=== PATIENT | female | born 1955 | race Caucasian/White ===

== ENCOUNTER 2017-02-01 10:39 | Inpatient (IN) | payer OTHER ==
[~2017-02-01] VITALS: Ht 172.7 cm; Wt 110.7 kg
[2017-02-01] MEDS ORDERED: LEVO125T4 PO (14:05)
[2017-02-01] MEDS ORDERED: CETI10 PO (14:05)
[2017-02-01] MEDS ORDERED: MULTTAB67 PO (14:09)
[2017-02-01] MEDS ORDERED: OMEGCAP PO (14:10)
[2017-02-01] MEDS ORDERED: ZOLO25TA PO (14:11)
[2017-02-01] MEDS ORDERED: ZOLO50TA PO (14:11)
[2017-02-02] VITALS (7 sets, daily range): BP systolic 91–123; BP diastolic 54–84; PULSE 70–74; RESP 14–20; TEMP 96.2–98.3; O2SAT 94–97
[2017-02-02] MEDS ORDERED: POVIDONE IODINE 7.5% SCRUB 118 ML BOTTLE TOPICAL SCH (06:15)
[2017-02-02] MEDS ORDERED: POVIDONE IODINE 5% (ANTISEPSIS KIT) 4 APPLICATIONS EACH NARE PRN (06:15)
[2017-02-02] MEDS ORDERED: VANCOMYCIN 1000 MG/NS 250 ML (for <70 kg) IV SCH ×2 (06:15)
[2017-02-02] MEDS ORDERED: SODIUM CHLORID 0.9% 500 ML IV PRN (06:15)
[2017-02-02] MEDS ORDERED: ceFAZolin 2 GM PREMIX 50 ML IV SCH (06:15)
[2017-02-02] MEDS ORDERED: METOPROLOL TARTRATE 25 MG TAB PO PRN (06:15)
[2017-02-02] MEDS ORDERED: LACTATED RINGER'S 1000 ML IV PRN (06:15)
[2017-02-02] MEDS ORDERED: INSULIN HUMAN REGULAR 1,000 UNITS/10 ML VIAL SQ PRN (06:15)
[2017-02-02] MEDS ORDERED: CHLORHEXIDINE GLUCONATE 2 % 1 PACK (2 CLOTHS) TOPICAL PRN (06:15)
[2017-02-02] MEDS ORDERED: DEXAMETHASONE SOD PHOS 20 MG/5 ML VIAL IV SCH (06:15)
[2017-02-02] MEDS ORDERED: GENTAMICIN SULFATE 80 MG/2 ML VIAL ONE (06:56)
--- NOTE | 2017-02-02 07:00 | HHI.DCPOC ---
Discharge Care Plan Diagnosis: (1) Status post total knee replacement, right (2) Primary localized osteoarthrosis, lower leg Your Health Problems Are: Difficulty with ADL Goals to Promote Your Health * To prevent worsening of your condition and complications * To maintain your health at the optimal level Directions to Meet Your Goals Take your medications as prescribed Follow your dietary instruction Follow activity as directed Keep your appointments as scheduled Take your immunizations and boosters as scheduled If your symptoms worsen call your PCP, if no PCP go to Urgent Care Center or Emergency Room Smoking is Dangerous to Your Health. Avoid second hand smoke Call the 24-hour hour crisis hotline for domestic abuse at Je Becker Feb 02, 2017 07:00
--- NOTE | 2017-02-02 07:01 | HHI.FF ---
Face to Face Verification Diagnosis: (1) Status post total knee replacement, right (2) Primary localized osteoarthrosis, lower leg Physical Therapy Gait training, Transfer training, bed to chair Knee: Total knee Right LE Weight Bearing: WB as tolerated Right LE Range of Motion: Active ROM Nursing Nursing: Katharine teaching, Dressing changes Dressing Changes: Daily dressing change I have seen patient Deepthi Lockhart on 02/02/17. My clinical findings support the need for the requested home health care services because: Limited ability to care for self High risk of falls I certify that my clinical findings support that this patient is homebound because: Post-op weakness Unsteady gait/balance Je Becker Feb 02, 2017 07:01
[2017-02-02] MEDS ORDERED: CPMMACHINE (07:03)
[2017-02-02] MEDS ORDERED: WALKER WHEELS/F1 MIS (07:03)
[2017-02-02] MEDS ORDERED: COMMODE 3-IN-11 MIS (07:03)
[2017-02-02] MEDS ORDERED: APREPITANT 40 MG CAP ONE (08:04)
[2017-02-02] MEDS ORDERED: ACETAMINOPHEN 1000 MG/100 ML VIAL IV ONE (08:08)
[2017-02-02] MEDS ORDERED: FAMOTIDINE 20 MG/2 ML VIAL ONE (08:09)
[2017-02-02] MEDS ORDERED: ROPIVACAINE PERI-ARTICULAR INJECTION. P-ARTICULR SCH ×5 (08:30)
[2017-02-02] MEDS ORDERED: TRANEXAMIC ACID INJ 1,107 MG in SODIUM CHLORIDE 0.9% INJ 100 ML IV SCH ×2 (08:30→12:00)
--- NOTE | 2017-02-02 10:22 | PD.OP ---
cc: Jean-Claude Manning MD Operative Report Date of Surgery: Feb 02, 2017 Preoperative Diagnosis: Right knee severe osteoarthritis Postoperative Diagnosis: Same Procedure: Right total knee arthroplasty Anesthesia: Adductor canal block and general Surgeon: Jean-Claude Manning Crystal Slicer(s): KVNG Tamayo The surgical procedure was assisted by my Advanced Registered Nurse Practitioner. My NURSING HOME PHYSICIAN presence was necessary throughout this case for the manipulation and positioning of the surgical extremity. My NURSING HOME PHYSICIAN was assisting me throughout the duration of this procedure. The skill set of an Advance Registered Nurse Practitioner was medically necessary to complete this procedure. During the surgical case, the surface lay out technician was working at the back table and the Advance Registered Nurse Practitioner was directly assisting me. Operation and Findings: IMPLANTS: DePuy Attune: Patella: size 38. Femur, posterior stabilized size 8. Tibia, rotating platform size 6. Tibial insert, rotating platform, posterior stabilized size 5 mm thickness. ESTIMATED BLOOD LOSS: 150 cc TOURNIQUET TIME: 43 minutes at 250 mmHg pressure. JUSTIFICATION FOR PROCEDURE: The patient has end-stage osteoarthritis to the knee. There is an attached conservative measures pathway form in the chart that describes the nonoperative measures that were undertaken prior to consideration of surgical management. The patient understood the risks and benefits of surgical management. See my office notes for further details PROCEDURE: The patient was brought back to the operative theatre. Adequate anesthesia was obtained. The patient received intravenous vancomycin and Ancef. The lower extremity was prepped and draped in the usual sterile fashion.The leg was exsanguinated, the tourniquet was raised. A standard anterior incision was performed followed by medial parapatellar arthrotomy was performed. End-stage arthritis was identified. Osteotomy of the patella was performed. We drilled holes for the patella. We trialed the patella component. We placed an intramedullary guide into the distal femur. We ultimately resected 13 mm off of the distal femur in 5 degrees of valgus. The remnants of the ACL and PCL were resected. Osteotomy of the proximal tibia was performed, resecting 6 mm off of the medial side. This was done with 3 degrees of posterior slope using an extramedullary guide. The distal end of the guide was placed in the mid aspect of the ankle. The femur was sized, and four chamfer cuts were completed in 3 of external rotation. We then cut the central box in the distal femur to replace the PCL. We resected the remnants of the menisci and removed osteophytes off of the femur and tibia. We then trialed the knee. We punched the tibia for the keel, and then used standard technique to cement in components. Excess cement was removed. We trialed the knee again and the final polyethylene thickness was chosen to provide extension to 0 degrees, and flexion of 140 degrees to gravity. The ligaments were appropriately balanced. Lateral release was necessary to obtain excellent patellofemoral tracking. The tourniquet was released and adequate hemostasis was obtained. An intra- articular injection of a ropivacaine cocktail was injected. The posterior knee was inspected for excess cement, which was removed. The final polyethylene was put into position after thorough irrigation. We then closed deep fascia with a #2 Stratafix followed by skin with 2-0 Vicryl followed by elsa. Postop plan is to weight-bear as tolerated. DVT prophylaxis will be performed with Monique, JESUS MANUEL reyes, early mobilization, and Lovenox followed by aspirin. Jean-Claude Manning MD Feb 02, 2017 10:22
[2017-02-02] MEDS ORDERED: ENOX40P SQ (10:24)
[2017-02-02] MEDS ORDERED: NORC5TAB PO (10:24)
[2017-02-02] MEDS ORDERED: ASPI325T PO (10:24)
[2017-02-02] MEDS ORDERED: SODIUM CHLORIDE 0.9% FLUSH 5 ML FLUSH IVF PRN (10:30)
[2017-02-02] MEDS ORDERED: NALOXONE HCL 0.4 MG/ML AMP IV PRN (10:30)
[2017-02-02] MEDS ORDERED: Post-op Orders (for Pharmacy) MISC XX ONE (10:30)
[2017-02-02] MEDS ORDERED: BISACODYL 10 MG SUPP RECTAL PRN (10:30)
[2017-02-02] MEDS ORDERED: ZOLPIDEM TARTRATE 5 MG TAB PO PRN (10:30)
[2017-02-02] MEDS ORDERED: ACETAMINOPHEN/HYDROcodone 325 MG/5 MG TAB PO PRN ×2 (10:30)
[2017-02-02] MEDS ORDERED: diphenhydrAMINE HCL 50 MG/ML VIAL IV PRN (10:30)
[2017-02-02] MEDS ORDERED: MORPHINE SULFATE 4 MG/ML INJ IV PUSH PRN (10:30)
[2017-02-02] MEDS ORDERED: ALUMINUM/MAGNESIUM/SIMETH 30 ML CUP PO PRN (10:30)
[2017-02-02] MEDS ORDERED: ONDANSETRON HCL 4 MG/2 ML VIAL IVP PRN (10:30)
[2017-02-02] MEDS ORDERED: MAGNESIUM HYDROXIDE SUSP 30 ML CUP PO PRN (10:30)
[2017-02-02] MEDS ORDERED: BUPIVACAINE LIPOSOME PF 1.3% 20 ML VIAL ONE (10:50)
[2017-02-02] MEDS: SODIUM CHLOR 0.9% 1000 ML INJ 1,000 ML IV SCH ×2 (11:00→20:19)
[2017-02-02] MEDS ORDERED: DO NOT ADM ANY ANTICOAGULANT DRUGS PRN (11:00)
[2017-02-02] MEDS ORDERED: MIDAZOLAM HCL 2 MG/2 ML VIAL ONE (11:07)
[2017-02-02] MEDS ORDERED: fentaNYL CITRATE 250 MCG/5 ML AMP ONE (11:07)
[2017-02-02] MEDS ORDERED: PILL SPLITTER OTHER PRN (11:15)
--- NOTE | 2017-02-02 11:55 | RADRPT ---
EXAM DATE/TIME: 02/02/2017 11:00 [place] COMPARISON: No previous studies available for comparison. INDICATIONS : Post op right knee surgery MEDICAL HISTORY : None. SURGICAL HISTORY : None. ENCOUNTER: Initial ACUITY: 1 day PAIN SCORE: 5/10 LOCATION: Right knee FINDINGS: Two view examination of the right knee was performed. Postoperative changes of knee arthroplasty with arthroplasty components in anatomic alignment. Osseous structures are intact without significant acu te bony fracture. Postsurgical soft tissue swelling and emphysema is noted. Surgical staple line ante riorly. CONCLUSION: 1. Expected postoperative changes of right knee arthroplasty with hardware in anatomic alignment with out significant acute bony fracture. Sky Oglesby MD on February 02, 2017 at 11:52 Board Certified Radiologist. This report was verified electronically.
[2017-02-02] MEDS ORDERED: NEOSTIGMINE 3 MG/3 ML SYR IV ONE (12:00)
[2017-02-02] MEDS ORDERED: LACTATED RINGER'S 1000 ML INJ 2,000 ML IV ONE (12:00)
[2017-02-02] MEDS ORDERED: ePHEDrine/NS 25 MG/5 ML SYR IV ONE (12:00)
[2017-02-02] MEDS ORDERED: ONDANSETRON HCL 4 MG/2 ML VIAL IV PUSH ONE (12:00)
[2017-02-02] MEDS ORDERED: PROPOFOL 200 MG/20 ML AMP IV ONE (12:00)
--- NOTE | 2017-02-02 15:15 | PD.CONS ---
HPI Service [facility] Hospitalists Consult Requested By Dr. Manning Reason for Consult Medical management Primary Care Physician Non-Staff Diagnoses: (1) Status post total knee replacement, right History of Present Illness Ms. Lockhart is a 61-year-old female patient with a known history of hypothyroidism, anxiety and depression, osteoarthritis of right knee who is status post total right knee arthroplasty with Dr. Manning today. Hospitalist team have been consulted for medical management. Patient seen and examined today. Patient states she failed outpatient management for right knee osteoarthritis and elected for total right knee arthroplasty. States she is relatively healthy. Compliant with medications. Denies any recent fever, chills , cough, headache, shortness of breath, abdominal pain, nausea, vomiting, diarrhea, or dysuria. At this time patient states pain is well controlled in right knee, denies any numbness or tingling, sensation intact. José dressing dry and intact. 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 Lovenox Inj (Enoxaparin Sodium) 40 Mg/0.4 Ml Syr 40 Mg SQ DAILY Start Aspirin after Lovenox is completed. Reported Zoloft (Sertraline HCl) 50 Mg Tab 1.5 Tab PO DAILY 75mg daily [place]-3 Fish Oil/Vitamin (Fish Oil-Cholecalciferol) 1,000-1,000 Mg Cap 2 Cap PO DAILY Multiple Vitamin 1 Tab 1 Tab PO DAILY Levothyroxine (Levothyroxine Sodium) 125 Mcg Tab 125 Mcg PO DAILY Cetirizine (Cetirizine HCl) 10 Mg Tab 10 Mg PO DAILY Active Ordered Medications Current Medications Medications (Trade) Dose Ordered Sig/Carlos Route Start Time Stop Time Status Last Admin Lactated Ringer's 1,000 ml @ 30 mls/hr Q24H PRN IV 02/02/17 06:15 02/05/17 06:14 02/02/17 06:05 (NS 500 ml Inj) 500 ml @ 30 mls/hr [id number] PRN IV 02/02/17 06:15 02/05/17 06:14 (Betadine 7.5% Scrub) 1 applic ONCE TOPICAL 02/02/17 06:15 02/05/17 06:14 02/02/17 07:06 (ZyrTEC) 10 mg DAILY PO 02/03/17 09:00 (Synthroid) 125 mcg DAILY@0600 PO 02/03/17 06:00 Sertraline HCl 75 mg 75 mg DAILY PO 02/03/17 09:00 (NS 1000 ml Inj) 1,000 ml @ 100 mls/hr Q10H IV 02/02/17 10:19 02/02/17 11:00 (NS Flush) 2 ml UNSCH PRN IVF 02/02/17 10:30 IV Flush 2 ml 2 ml BID IVF 02/02/17 21:00 (Ancef Inj/NS Inj) 100 ml @ 200 mls/hr Q6H IV 02/02/17 14:00 02/03/17 02:29 02/02/17 12:55 (Decadron Inj) 10 mg ONCE ONCE IV 02/03/17 07:45 02/03/17 07:46 (Lovenox Inj) 40 mg Q24H SQ 02/03/17 10:00 02/12/17 10:01 ([place] 5-325 Mg) 1 tab Q4H PRN PO 02/02/17 10:30 Acetaminophen/ Hydrocodone Bitart 2 tab 2 tab Q4H PRN PO 02/02/17 10:30 (Cyklokapron Inj/ NS Inj) 111.07 ml @ 200 mls/ hr UNSCH IV 02/02/17 12:00 02/02/17 18:00 02/02/17 12:10 (Theragran M Tab) 1 tab BID PO 02/03/17 21:00 04/04/17 20:59 (Zofran Inj) 4 mg Q6H PRN IVP 02/02/17 10:30 (Colace) 100 mg BID PO 02/03/17 21:00 (Mag-Al Plus Susp Liq) 30 ml Q6H PRN PO 02/02/17 10:30 (Ambien) 5 mg HS PRN PO 02/02/17 10:30 (Dulcolax Supp) 10 mg DAILY PRN RECTAL 02/02/17 10:30 (Milk Of Magnesia Liq) 30 ml DAILY PRN PO 02/02/17 10:30 (Narcan Inj) 0.4 mg UNSCH PRN IV 02/02/17 10:30 (Benadryl Inj) 25 mg Q6H PRN IV 02/02/17 10:30 (Morphine Inj) 2 mg Q3H PRN IV PUSH 02/02/17 10:30 Miscellaneous Information ALL NURSING DEPARTME... UNSCH PRN .XX 02/02/17 11:00 02/03/17 10:59 (Pill Splitter) 1 ea UNSCH PRN OTHER 02/02/17 11:15 Family History Maternal medical history significant for brain cancer, at the age of 7878 years old. Father is alive, 93 years old and doing well. Social History Patient denies any past or current tobacco use. Admits to occasional alcohol use. Denies any illicit drug use. Physical Exam Vital Signs Vital Signs Date Time Temp Pulse Resp B/P Pulse Ox O2 Delivery O2 Flow Rate FiO2 02/02/17 13:48 104/59 02/02/17 12:46 96.2 70 14 91/54 94 02/02/17 12:00 57 20 96/55 97 Nasal Cannula 2 02/02/17 11:45 57 20 98/54 96 Nasal Cannula 2 02/02/17 11:30 61 20 98/53 91 Nasal Cannula 2 02/02/17 11:15 56 20 100/57 94 Nasal Cannula 2 02/02/17 10:56 97.7 64 20 109/68 95 Nasal Cannula 2 02/02/17 07:00 98.0 70 18 123/84 96 Physical Exam GENERAL: Well-nourished, well-developed patient, in no apparent distress sitting up in chair comfortably. SKIN: No rashes, ecchymoses or lesions. Warm and dry. HEENT: Atraumatic. Normocephalic. No temporal or scalp tenderness. Pupils equal round and reactive. Extraocular motions intact. Nose without bleeding. Airway patent. NECK: Trachea midline. No JVD. Supple. CARDIOVASCULAR: Regular rate and rhythm. No murmur appreciated. RESPIRATORY: Clear to auscultation. Breath sounds equal bilaterally. No wheezes , rales, or rhonchi. GASTROINTESTINAL: Abdomen soft, non-tender, nondistended. No guarding. MUSCULOSKELETAL: Extremities without clubbing, cyanosis, or edema. No joint tenderness, effusion, or edema noted. Right knee dressing in place, clean, dry, intact. Sensation intact. Skin warm and dry. NEUROLOGICAL: Awake and alert. Cranial nerves II through XII intact. Motor and sensory grossly within normal limits. Five out of 5 muscle strength in all muscle groups. Normal speech. Laboratory Laboratory Tests Test 02/02/17 06:52 Blood Type A POSITIVE Antibody Screen NEGATIVE Imaging Last Impressions Knee X-Ray 02/02/17 1019 Signed Impressions: Service Date/Time: Tuesday, February 02, 2017 11:00 - CONCLUSION: 1. Expected postoperative changes of right knee arthroplasty with hardware in anatomic alignment without significant acute bony fracture. Sky Oglesby MD Assessment and Plan Assessment and Plan Ms. Lockhart is a 61-year-old female patient with a known history of hypothyroidism, anxiety and depression, osteoarthritis of right knee who is status post total right knee arthroplasty with Dr. Manning today. Hospitalist team have been consulted for medical management. Status post right total knee arthroplasty - Post op day 0, 02/02/17. - Right knee x-ray reviewed, expected postoperative changes of right knee arthroplasty with hardware in anatomic alignment without significant acute bony fractures. - Control pain. [place] tablets PO PRN per pain scale. Morphine 2 mg IV q3h PRN pain >5. Control nausea, Zofran PRN. Monitor for constipation, Colace 100 mg PO BID, Milk of magnesium PRN. - Ancef 1 g IV x 3 bags. - Continue NS at 100ml/hr. Encourage PO intake, if tolerating DC IVF. - PT evaluation and treat. - Continuous passive range of motion, dressing changes, and activity per orthopedic recommendations. Other medical problems include hypothyroidism, anxiety and depression which are stable at this time. Will continue home medications as indicated. DVT prophylaxis: SCDs. Lovenox 40 mg sq Q24hr. Thank you for this consult. Will follow with you. Written by Geri Baeza, acting as scribe for Dr. Porras on 02/02/17 at 15:07. This note was transcribed by angel DISLA. I, Dr. Sherice Porras personally performed the history, physical exam, and medical decision making; and confirmed the accuracy of the information in the transcribed note. Authenticated by Dr. Sherice Porras on 02/02/17 at 15:07. Geri Baeza Feb 02, 2017 15:15 Sherice Porras MD Feb 02, 2017 18:54
[2017-02-02] MEDS: SODIUM CHLORIDE 0.9% FLUSH 5 ML FLUSH IVF SCH (20:24)
[2017-02-02] MEDS ORDERED: ACETAMINOPHEN 325 MG TAB PO PRN (21:15)
[2017-02-03] VITALS: BP 107/68; PULSE 82; RESP 18; TEMP 96.9; O2SAT 93
[2017-02-03 04:02] VITALS: BP 106/68; PULSE 81; RESP 20; TEMP 96.9; O2SAT 97
[2017-02-03] MEDS ORDERED: LEVOTHYROXINE SODIUM 125 MCG TAB PO SCH (06:00)
[2017-02-03] MEDS: SODIUM CHLOR 0.9% 1000 ML INJ 1,000 ML IV SCH (06:16)
[2017-02-03 06:19] LABS: MEAN CELL VOLUME 77.3 FL (80.0-100.0); MEAN CORPUSCULAR HGB CONC 32.4 % (32.0-36.0); PLATELET COUNT 116 TH/MM3 (150-450); RED BLOOD COUNT 4.02 MIL/MM3 (4.00-5.30); RED CELL DISTRIBUTION WIDTH 14.3 % (11.6-17.2); REVIEW FLAG FINAL; WHITE BLOOD COUNT 9.8 TH/MM3 (4.0-11.0)
[2017-02-03] MEDS ORDERED: DEXAMETHASONE SOD PHOS 20 MG/5 ML VIAL IV ONE (07:45)
[2017-02-03 08:00] VITALS: BP 116/75; PULSE 85; RESP 18; TEMP 97.5; O2SAT 95
[2017-02-03] MEDS: SODIUM CHLORIDE 0.9% FLUSH 5 ML FLUSH IVF SCH (08:36)
[2017-02-03] MEDS ORDERED: CETIRIZINE HCL 10 MG TAB PO SCH (09:00)
[2017-02-03] MEDS ORDERED: SERTRALINE HCL 50 MG TAB PO SCH (09:00)
[2017-02-03] MEDS ORDERED: ENOXAPARIN SODIUM 40 MG/0.4 ML SYRINGE SQ SCH (10:00)
--- NOTE | 2017-02-03 12:08 | HHI.PR ---
Subjective Remarks Patient is in bed., Says she did have a BM . No n/v/d/c. Tolerates food. Tolerates well PT. No fever or chills. Objective Vitals Vital Signs Date Time Temp Pulse Resp B/P Pulse Ox O2 Delivery O2 Flow Rate FiO2 02/03/17 08:00 97.5 85 18 116/75 95 02/03/17 04:02 96.9 81 20 106/68 97 02/03/17 00:00 96.9 82 18 107/68 93 02/02/17 20:42 97 21 02/02/17 20:00 98.3 74 20 107/62 95 02/02/17 16:12 97 21 02/02/17 16:00 97.6 72 15 111/65 94 02/02/17 13:48 104/59 02/02/17 12:46 96.2 70 14 91/54 94 I/O 02/02/17 02/02/17 02/02/17 02/03/17 02/03/17 02/03/17 07:00 15:00 23:00 07:00 15:00 23:00 Intake Total 2580 ml 334 ml Output Total 150 ml Balance 2430 ml 334 ml Intake Oral 480 ml IV Total 200 ml 334 ml Other 1900 ml Output Estimated Blood Loss 150 ml # Voids 1 1 1 # Bowel Movements 0 0 Result Diagram: 02/03/17 0542 Imaging Last Impressions Knee X-Ray 02/02/17 1019 Signed Impressions: Service Date/Time: Thursday, February 02, 2017 11:00 - CONCLUSION: 1. Expected postoperative changes of right knee arthroplasty with hardware in anatomic alignment without significant acute bony fracture. Sky Oglesby MD Objective Remarks GENERAL: Well-nourished, well-developed patient, in no apparent distress sitting up in chair comfortably. SKIN: No rashes, ecchymoses or lesions. Warm and dry. HEENT: Atraumatic. Normocephalic. No temporal or scalp tenderness. Pupils equal round and reactive. Extraocular motions intact. Nose without bleeding. Airway patent. NECK: Trachea midline. No JVD. Supple. CARDIOVASCULAR: Regular rate and rhythm. No murmur appreciated. RESPIRATORY: Clear to auscultation. Breath sounds equal bilaterally. No wheezes , rales, or rhonchi. GASTROINTESTINAL: Abdomen soft, non-tender, nondistended. No guarding. MUSCULOSKELETAL: Extremities without clubbing, cyanosis, or edema. No joint tenderness, effusion, or edema noted. Right knee dressing in place, clean, dry, intact. Sensation intact. Skin warm and dry. NEUROLOGICAL: Awake and alert. Cranial nerves II through XII intact. Motor and sensory grossly within normal limits. Five out of 5 muscle strength in all muscle groups. Normal speech. A/P Problem List: (1) Status post total knee replacement, right ICD Code: Z96.651 Status: Acute Assessment and Plan Ms. Lockhart is a 61-year-old female patient with a known history of hypothyroidism, anxiety and depression, osteoarthritis of right knee who is status post total right knee arthroplasty with Dr. Manning today. Hospitalist team have been consulted for medical management. OA right knee- Status post right total knee arthroplasty 02/02/17. - Right knee x-ray reviewed, expected postoperative changes of right knee arthroplasty with hardware in anatomic alignment without significant acute bony fractures. - Control pain. [place] tablets PO PRN per pain scale. Morphine 2 mg IV q3h PRN pain >5. Control nausea, Zofran PRN. Monitor for constipation, Colace 100 mg PO BID, Milk of magnesium PRN. - Ancef 1 g IV x 3 bags. - Continue NS at 100ml/hr. Encourage PO intake, if tolerating DC IVF. - PT evaluation and treat. - Continuous passive range of motion, dressing changes, and activity per orthopedic recommendations. Other medical problems include hypothyroidism, anxiety and depression which are stable at this time. Will continue home medications as indicated. DVT prophylaxis: SCDs. Lovenox 40 mg sq Q24hr. Thank you for this consultation, will follow along. Discussed with the patient, nurse, Sherice Porras MD Feb 03, 2017 12:08
--- NOTE | 2017-02-03 12:09 | PD.ORT.PN ---
Subjective Post Op Day #: 1 Subjective Remarks Patient resting in bed using CPM with no pain to the right knee. Patient has not taken any pain medication today. Patient requesting to go home today with home health. Objective Vitals Vital Signs Date Time Temp Pulse Resp B/P Pulse Ox O2 Delivery O2 Flow Rate FiO2 02/03/17 08:00 97.5 85 18 116/75 95 02/03/17 04:02 96.9 81 20 106/68 97 02/03/17 00:00 96.9 82 18 107/68 93 02/02/17 20:42 97 21 02/02/17 20:00 98.3 74 20 107/62 95 02/02/17 16:12 97 21 02/02/17 16:00 97.6 72 15 111/65 94 02/02/17 13:48 104/59 02/02/17 12:46 96.2 70 14 91/54 94 I/O 02/02/17 02/02/17 02/02/17 02/03/17 02/03/17 02/03/17 07:00 15:00 23:00 07:00 15:00 23:00 Intake Total 2580 ml 334 ml Output Total 150 ml Balance 2430 ml 334 ml Intake Oral 480 ml IV Total 200 ml 334 ml Other 1900 ml Output Estimated Blood Loss 150 ml # Voids 1 1 1 # Bowel Movements 0 0 Result Diagram: 02/03/17 0542 Procedures Right TKA Objective Remarks Dressings changed with no drainage. Incision is well approximated with surgical clips intact. No redness or s/s of infection. EHL/TA/G intact. 2+ pedal pulse. Calf is soft and nontender. Minimal swelling. + SILT. Assessment & Plan Ortho Post Op Day #: 1 Problem List: Assessment and Plan POD #1: Right TKA 1. WBAT RLE 2. Lovenox for DVT prophylaxis 3. Ice to the right knee PRN 4. Stable for discharge home with home health today. Will f/u with Dr. Manning in 1-2 weeks. Je Becker Feb 03, 2017 12:09
[2017-02-03 12:22] VITALS: O2SAT 95
[2017-02-03] MEDS ORDERED: DOCUSATE SODIUM 100 MG CAP PO SCH (21:00)
[2017-02-03] MEDS ORDERED: MULTIVITAMINS/MINERALS THERAPEUTIC TAB PO SCH (21:00)
--- NOTE | 2017-02-07 22:27 | HHI.DS ---
Discharge Summary Admission Date Feb 02, 2017 at 05:50 Discharge Date: Feb 03, 2017 Admitting Diagnosis Primary localized OA of the lower leg Status post total knee replacement, right Diagnosis: (1) Status post total knee replacement, right Diagnosis: Principal (2) Primary localized osteoarthrosis, lower leg Diagnosis: Principal Procedures Right TKA Brief History This is a 61 year old female patient with severe OA of the right knee CBC/BMP: 02/03/17 0542 PE at Discharge Dressings changed with no drainage. Incision is well approximated with surgical clips intact. No redness or s/s of infection. EHL/TA/G intact. 2+ pedal pulse. Calf is soft and nontender. Minimal swelling. + SILT. Hospital Course The patient was admitted to the hospital for severe OA of the right knee to have a right TKA. The patient tolerated the procedure well with no complications. The patient is WBAT. The patient was placed on Lovenox followed by ASA post op for DVT prophylaxis. The patient is on a regular diet. The patient will f/u with Dr. Manning in 1-2 weeks. The patient is discharged to home health. Pt Condition on Discharge: Stable Discharge Disposition: Disch w/ Home Health Serv Discharge Instructions Diet Instructions: As Tolerated, No Restrictions Activities You Can Perform: Weight Bearing as Timmy Activities to Avoid: Strenuous Activity Follow up Referrals: Orthopedics with Jean-Claude Manning MD New Medications: Aspirin (Aspirin) 325 Mg Tab 325 MG PO DAILY Start Aspirin after Lovenox is completed. Prevent Blood Clot # 30 Ref 0 TAB Commode 3-in-1 (Commode 3-in-1) 1 Mis Mis 1 EA .ROUTE DIRECTED #1 Ref 0 EA CPM-Continuous Passive Motion Machine (CPM-Continuous Passive Motion Machine) 1 Ea Device 1 EA .ROUTE DIRECTED #1 Ref 0 EA Enoxaparin Inj (Lovenox Inj) 40 Mg/0.4 Ml Syr 40 MG SQ DAILY Start Aspirin after Lovenox is completed. Blood Clot Prevention # 10 Ref 0 SYRINGE Hydrocodone-Acetaminophen ([place]) 5-325 mg Tab 1-2 TAB PO Q4H PRN PAIN #60 Ref 0 TAB Walker with Front Wheels (Walker with Front Wheels) 1 Mis Mis 1 EA .ROUTE DIRECTED #1 Ref 0 EA Continued Medications: Cetirizine (Cetirizine) 10 Mg Tab 10 MG PO DAILY Allergies Ref 0 TAB Levothyroxine (Levothyroxine) 125 Mcg Tab 125 MCG PO DAILY Thyroid #30 Ref 0 TAB Multiple Vitamin (Multiple Vitamin) 1 Tab 1 TAB PO DAILY Nutritional Supplement Ref 0 TAB Sertraline (Zoloft) 50 Mg Tab 1.5 TAB PO DAILY 75mg daily #30 Ref 0 TAB Discontinued Medications: Fish Oil-Cholecalciferol ([place]-3 Fish Oil/Vitamin) 1,000-1,000 Mg Cap 2 CAP PO DAILY Nutritional Supplement Ref 0 CAP Je Becker Feb 07, 2017 22:27
== END 2017-02-03 12:52 | disposition home health service (06) | DRG 470 ==
LOC: HSDI 02-02 05:50 → N06B 02-02 12:24
PROVIDERS: ADMIT Orthopaedic Surgery; ATTEND Orthopaedic Surgery
PROC: 3E0T3CZ (ICD-10-PCS; 2017-02-02)
PROC: 0SRC0J9 Replacement of Right Knee Joint with Synthetic Substitute, Cemented, Open Approach (ICD-10-PCS; principal; 2017-02-02 08:13)
DX: M17.11 Unilateral primary osteoarthritis, right knee (principal); F32.9 Major depressive disorder, single episode, unspecified; E03.9 Hypothyroidism, unspecified; F41.9 Anxiety disorder, unspecified; Z96.652 Presence of left artificial knee joint; J30.9 Allergic rhinitis, unspecified; R11.0 Nausea
CPT/HCPCS: 73560; 85027; 86850; 86900; 86901; 94150; C1776; C9290; J0131; J0171; J0690; J0735; J1100; J1580; J1650; J1885; J2250; J2405; J2710; J2795; J3010; J3370; J7030; J7050; J7120; J8501; L1830